=== PATIENT | male | born 2000 | race Asian ===

== ENCOUNTER 2021-08-29 04:27 | Emergency (ER) | payer BC ==
[~2021-08-29] VITALS: Ht 167.6 cm; Wt 54.4 kg
[2021-08-29 04:29] VITALS: BP 117/85
--- NOTE | 2021-08-29 04:35 | NUR ---
Patient ambulated to bed 9.
[2021-08-29] MEDS ORDERED: LIDOCAINE MPF 1% 10 MG/ML VIAL INJ ONE (04:40)
[2021-08-29] MEDS ORDERED: BACITRACIN OINT 500 UNITS/GM PKT TP ONE ×2 (05:02→05:05)
[2021-08-29] MEDS ORDERED: IBUP-2213 PO (05:04)
--- NOTE | 2021-08-29 05:10 | NUR ---
Patient discharged. Written and verbal after care instructions given and explained about [facility]. Patient alert, oriented and verbalized understanding of instructions. Ambulatory with steady gait. All questions addressed prior to discharge. ID band removed. Patient advised to follow up with PMD. Rx of Ibuprofen given. Patient educated on indication of medication including possible reaction and side effects. Opportunity to ask questions provided and answered.
== END 2021-08-29 05:10 | disposition home or self-care (01) ==
LOC: MED 04:27
DX: S61.216A Laceration without foreign body of right little finger without damage to nail, initial encounter (principal); S61.214A Laceration without foreign body of right ring finger without damage to nail, initial encounter; Z79.899 Other long term (current) drug therapy; W26.0XXA Contact with knife, initial encounter; Y93.G1 Activity, food preparation and clean up; Y92.89 Other specified places as the place of occurrence of the external cause; Y99.8 Other external cause status
CPT/HCPCS: 12001; 99282; J2001